=== PATIENT | female | born 1955 | race Caucasian/White ===

== ENCOUNTER 2017-07-26 06:53 | Inpatient (IN) | payer OTHER ==
[2017-07-26] VITALS (21 sets, daily range): BP systolic 100–140; BP diastolic 52–93; PULSE 82–104; RESP 11–27; Ht 160 cm; Wt 52.3 kg
[~2017-07-26] VITALS: Ht 160 cm; Wt 52.3 kg
[~2017-07-26 06:53] MED LIST: NO HOME MEDS
[2017-07-26] MEDS ORDERED: EPHEDrine SULFATE 50 MG/5 ML SYG ONE (07:00)
[2017-07-26] MEDS ORDERED: CEFAZOLIN 1 GM INJ ONE (07:00)
[2017-07-26] MEDS ORDERED: ROCURONIUM 50 MG INJ ONE (07:00)
--- NOTE | 2017-07-26 07:51 | HPN ---
Date/Time of Note Date/Time of Note DATE: 07/26/17 TIME: 07:51 Interval H&P Admission Note Pt. seen H&P reviewed: No system changes BAUDILIO PIMENTEL MD Jul 26, 2017 07:51
[2017-07-26] MEDS ORDERED: PROPOFOL 20 ML ONE (07:59)
[2017-07-26] MEDS ORDERED: morphine SULFATE/PF (10 MG/10 ML) INJ ONE (07:59)
[2017-07-26] MEDS ORDERED: TRANEXAMIC ACID IVPB ONE (08:00)
[2017-07-26] MEDS ORDERED: MIDAZOLAM 1 MG/ML 2 ML INJ ONE (08:00)
[2017-07-26] MEDS ORDERED: SOD CHLORIDE 0.9% IVPB ONE (08:00)
[2017-07-26] MEDS ORDERED: METOCLOPRAMIDE 10 MG INJ ONE (08:00)
[2017-07-26] MEDS ORDERED: CITA10TA72 PO (08:01)
[2017-07-26] MEDS ORDERED: NAPR-688 PO (08:01)
[2017-07-26] MEDS ORDERED: TRAM-40 PO (08:01)
[2017-07-26] MEDS ORDERED: RANI150T9 PO (08:01)
[2017-07-26] MEDS ORDERED: ROPIVACAINE 0.5 % 30 ML VIAL ONE (08:01)
[2017-07-26] MEDS ORDERED: DEXAMETHASONE 4 MG/ML 1 ML INJ ONE (08:55)
[2017-07-26] MEDS ORDERED: POLYMYXIN/BACITRACIN 1L IRRIG ONE (09:40)
[2017-07-26] MEDS ORDERED: ONDANSETRON 4 MG INJ IV PRN (10:00)
[2017-07-26] MEDS ORDERED: DIPHENHYDRAMINE 50 MG INJ IV PRN (10:00)
[2017-07-26] MEDS ORDERED: HYDROmorphONE (0.2 MG/ML) 10ML SYG IV PRN ×3 (10:00)
[2017-07-26] MEDS ORDERED: MEPERIDINE 25 MG INJ IV PRN (10:00)
--- NOTE | 2017-07-26 11:49 | OPR ---
Date/Time of Note Date/Time of Note DATE: 07/26/17 TIME: 11:37 Operative Report Preoperative Diagnosis Left hip osteoarthritis Postoperative Diagnosis Same Operation/Procedure Performed Left total hip replacement Surgeon see signature line At Risk Specialist None Anesthesia Type: general, other (Fascial iliaca block) Estimated Blood Loss: 100 - 150 ml's Transfusion none Specimen Femoral head Grafts/Implants Microport implants 1. Pro femur Z femoral stem size 3 with neutral neck 2. 50 mm acetabular cup 3. 36 mm head Tubes/Drains None Complications none Disposition: PACU Indications Ms. Stephen is a 62-year-old female who has had progressive pain in both hips. Pain has been worse on the left side. She has received nonoperative treatment with cortisone injection physical therapy and anti-inflammatory medications. Yet continued to have severe pain. She now presents for elective left total hip replacement. Risks and benefits of the surgery were discussed with the patient's. Risks including but not limited to infection bleeding blood clots dislocation fracture nerve damage blood vessel damage need for more surgery along with other medical anesthetic and surgical complications were discussed. Informed consent was obtained. Procedure Description Patient's correct extremity was identified in the preoperative area. She is brought back to the operating room where she had spinal anesthetic she had the block. She then had general endotracheal anesthesia. The she had preoperative antibiotics. She has Tranexamic acid administered. She had a Machado catheter placed. She was then positioned in the lateral decubitus position with the left side facing up. Left lower extremity is prepped and draped in the standard sterile manner. Timeout was performed. I then made a standard lateral incision for a posterior approach. I went through skin subcutaneous tissue incised the fascia bluntly split the gluteus karl muscle. The piriformis tendon was found and released and tagged. T-shaped capsulotomy was made in the capsule. The hip joint was then dislocated and a femoral neck cut was made. The femoral head was then passed the specimen I then turned my attention the acetabulum I put my retractors sequentially reamed to 49 reamer I then impacted a 50 mm cup to the was fully seated with about 40 of abduction and about 15 of anteversion. I put 2 screws x-ray showed confirmed good position of the cup. I then turned my attention the femur I cleared the calcar region and then sequentially broached to a size 3 broach I then trialed a neutral neck with a 36 head until I was able to get the leg lengths which are equal as confirmed by x-ray at this point I think the trial broach impacted a size 3 Pro femur Z stem until it was fully seated. At this point I used a 2.5 mm head impacted until the Madrigal taper engaged I then reduced the hip the hip was stable in mid flexion full flexion external rotation had excellent stability at this point I obtained final x-rays which confirm that leg lengths were equal when comparing the inferior aspect of the initial tuberosity. At this point I turned my attention closure thoroughly irrigated the wounds good hemostasis been obtained so drain was not utilized. I closed the piriformis tendon and the posterior hip capsule to the posterolateral aspect of the femur using 2 drill holes. The fascia was then closed with interrupted #1 Vicryl subcutaneous tissue with 2-0 Vicryl skin with luis alfredo. A dry sterile dressing was applied. Patient was then extubated and transported to the recovery room in stable condition. The foot was warm with a 2+ dorsalis pedis pulse at the end of the case. And the leg lengths were clinically equal and comparing the medial malleoli. BAUDILIO PIMENTEL MD Jul 26, 2017 11:49
[2017-07-26] MEDS ORDERED: MAGNESIUM HYDROXIDE 30ML CUP PO PRN (12:00)
[2017-07-26] MEDS ORDERED: oxyCODONE 5 MG TAB PO PRN (12:00)
[2017-07-26] MEDS ORDERED: NALOXONE (0.4 MG/ML) INJ IV PRN (12:00)
[2017-07-26] MEDS ORDERED: NACL 0.9% 3 ML SYG IV SCH (12:00)
[2017-07-26] MEDS ORDERED: SENNA/DOCUSATE NA (8.6MG/50MG) TAB PO PRN (12:00)
[2017-07-26] MEDS ORDERED: CEFAZOLIN 1 GM/50 ML (PMX) 50 ML IVPB ONE (12:08)
[2017-07-26] MEDS ORDERED: ACETAMINOPHEN 500 MG TAB ONE (12:09)
[2017-07-26] MEDS: ACETAMINOPHEN 500 MG TAB PO SCH ×2 (12:16→18:10)
[2017-07-26] MEDS: CEFAZOLIN 1 GM/50 ML (PMX) 50 ML IVPB SCH ×2 (12:17→19:40)
[2017-07-26] MEDS: DEXTROSE 5%-LR 1,000 ML IV SCH (12:57)
--- NOTE | 2017-07-26 13:01 | RADRPT ---
PROCEDURE: XR left Hip. CLINICAL INDICATION: Left hip pain, hip replacement TECHNIQUE: AP and cross-table lateral views of the left hip are submitted for review. COMPARISON: None. FINDINGS: Portions of a left total hip arthroplasty are present. These appear to be anatomically aligned and w ell seated. The right hip is unremarkable. The soft tissues are unremarkable. IMPRESSION: Portions of a left hip arthroplasty are present. These appear to be anatomically aligned and well se ated. RPTAT:AAJJ Physician Fabio Date Time Electronically viewed and signed by Andrés Hernandez Physician on 07/26/2017 13:00 SERGO/
--- NOTE | 2017-07-26 15:56 | HP ---
Date/Time of Note Date/Time of Note DATE: 07/26/17 TIME: 15:48 Assessment/Plan VTE Prophylaxis VTE Prophylaxis Intervention: other Lines/Catheters IV Catheter Type (from Nrsg): Peripheral IV Urinary Cath still in place: Yes Reason Cath still needed: urinary retention Assessment/Plan Assessment/Plan -Left hip osteoarthritis, status post left total hip replacement, will start Eliquis tomorrow 2.5 mg twice daily for 35 days. Continue oxycodone for pain. Follow up surgical recommendations -Depression with anxiety, continue Celexa. -Smoker, cessation is advised. Further recommendations based on clinical course. Plan of care discussed with Dr. Porras. HPI/ROS Admit Date/Time Admit Date/Time Jul 26, 2017 at 06:53 Hx of Present Illness The patient is 62-year-old pleasant female with history of depression with anxiety. Patient complains of bilateral hip pain left more than right which could progressively worse. Patient received nonoperative treatment with cortisone injection and physical talc therapy and anti-inflammatory medication with no significant improvement. Patient was evaluated by Dr. Stout in orthopedic surgery consultation. Patient was brought to the hospital and underwent total left hip replacement. Patient is admitted for further evaluation and management to medical surgical floor. PMH/Family/Social Past Medical History Depression with anxiety Past Surgical History Status post appendectomy status post skin cyst removal status post colonoscopy Family History Significant Family History: no pertinent family hx Social History Alcohol Use: none Smoking Status: Current every day smoker (Patient smokes about 4 cigarettes per day) Drug Use: none Exam/Review of Systems Vital Signs Vitals Vital Signs Date Time Temp Pulse Resp B/P Pulse Ox O2 Delivery O2 Flow Rate FiO2 07/26/17 14:30 97.7 91 16 112/56 100 Room Air 07/26/17 11:48 8.0 Exam Constitutional: alert, oriented Head: normocephalic Neck: supple Respiratory: normal air movement Cardiovascular: nl pulses Gastrointestinal: non-tender, soft Musculoskeletal: other (Status post left hip surgery) Extremities: normal pulses Neurological: nl mental status Medications Medications Current Medications Dextrose/Lactated Ringer's (D5-Lr) 1,000 ml @ 80 mls/hr [id number] IV Last administered on 07/26/17t 12:57; Admin Dose 80 MLS/HR; Start 11/17/17 at 11:50 Oxycodone HCl (Roxicodone) 20 mg Q3H PRN PO PAIN LEVEL 8-10; Start 07/26/17 at 12:00 Oxycodone HCl (Roxicodone) 10 mg Q3H PRN PO PAIN LEVEL 4-7; Start 07/26/17 at 12:00 Oxycodone HCl (Roxicodone) 5 mg Q3H PRN PO PAIN LEVEL 1-3; Start 07/26/17 at 12:00 Acetaminophen (Tylenol Tab) 500 mg Q6 PO Last administered on 07/26/17t 12:16 ; Admin Dose 500 MG; Start 07/26/17 at 12:00 Ondansetron HCl 4 mg 4 mg Q4H PRN IV NAUSEA AND/OR VOMITING; Start 07/27/17 at 12:00 Cefazolin Sodium (Ancef 1 Gm/50 ml (Pmx)) 50 ml @ 100 mls/hr Q8H IVPB Last administered on 07/26/17t 12:17; Admin Dose 100 MLS/HR; Start 07/26/17 at 12: 00; Stop 07/27/17 at 04:29 Pantoprazole (Protonix Tab) 40 mg DAILY@06 PO ; Start 07/27/17 at 06:00 Docusate Sodium (Colace) 200 mg BID PO ; Start 07/27/17 at 09:00; Stop at 21:01 Senna/Docusate Sodium (Senokot-S) 2 tab BID PRN PO CONSTIPATION; Start at 12:00 Magnesium Hydroxide (Milk Of Mag) 30 ml HS PRN PO CONSTIPATION; Start at 12:00 Naloxone HCl (Narcan) 0.2 mg Q2M PRN IV DECREASED REPIRATORY RATE; Start at 12:00 Apixaban (Eliquis) 2.5 mg BID PO ; Start 07/27/17 at 09:00 KERI MURRAY Jul 26, 2017 15:56
[2017-07-26] MEDS ORDERED: ONDANSETRON 4 MG INJ ONE (18:33)
[2017-07-26] MEDS: ONDANSETRON 4 MG INJ IV PRN (18:38)
[2017-07-27] VITALS (8 sets, daily range): BP systolic 75–117; BP diastolic 50–60; PULSE 82–96; RESP 16–19
[2017-07-27] MEDS: DEXTROSE 5%-LR 1,000 ML IV SCH (01:06)
[2017-07-27] MEDS: CEFAZOLIN 1 GM/50 ML (PMX) 50 ML IVPB SCH (04:25)
[2017-07-27 05:23] LABS: BASOPHILS % 0.1 % (0.0-2.0); EOSINOPHILS % 0.4 % (0.0-7.0); HEMATOCRIT 24.4 % (37.0-47.0); HEMOGLOBIN 8.2 g/dl (12.0-16.0); LYMPHOCYTES # 2.1 10^3/ul (0.8-2.9); LYMPHOCYTES % 22.2 % (15.0-51.0); MEAN CORPUSCULAR HEMOGLOBIN 30.7 pg (29.0-33.0); MEAN CORPUSCULAR HGB CONC 33.6 g/dl (32.0-37.0); MEAN CORPUSCULAR VOLUME 91.4 fl (82.0-101.0); MEAN PLATELET VOLUME 10.7 fl (7.4-10.4); MONOCYTES % 10.9 % (0.0-11.0); NEUTROPHIL # 6.2 10^3/ul (1.6-7.5); NEUTROPHILS % 66.1 % (39.0-77.0); PLATELET COUNT 182 10^3/UL (140-415); RED BLOOD COUNT 2.67 10^6/ul (4.20-5.40); RED CELL DISTRIBUTION WIDTH 12.5 % (11.5-14.5); WHITE BLOOD COUNT 9.4 10^3/ul (4.8-10.8)
[2017-07-27] MEDS: ACETAMINOPHEN 500 MG TAB PO SCH ×6 (05:55→18:26)
[2017-07-27] MEDS: oxyCODONE 5 MG TAB PO PRN ×3 (05:59→22:27)
[2017-07-27] MEDS: PANTOPRAZOLE (EC) 40 MG TAB PO SCH (05:59)
[2017-07-27 06:39] LABS: CALCIUM 8.6 mg/dl (8.4-10.2); CREATININE 0.67 mg/dl (0.44-1.00); POTASSIUM 4.2 mmol/L (3.5-5.1)
[2017-07-27] MEDS ORDERED: SOD CHLORIDE 0.9% 1,000 ML IV ONE (09:00)
[2017-07-27] MEDS: DOCUSATE SODIUM 100 MG CAP PO SCH ×2 (09:07→22:22)
[2017-07-27] MEDS: CITALOPRAM 20 MG TAB PO SCH (09:08)
[2017-07-27] MEDS: APIXABAN 5 MG TABLET PO SCH ×2 (09:08→22:22)
[2017-07-27] MEDS ORDERED: ONDANSETRON 4 MG INJ IV PRN (12:00)
[2017-07-27] MEDS: SOD CHLORIDE 0.9% 1,000 ML IV SCH ×2 (12:11→23:30)
--- NOTE | 2017-07-27 12:16 | PN ---
Date/Time of Note Date/Time of Note DATE: 07/27/17 TIME: 12:14 Assessment/Plan Lines/Catheters IV Catheter Type (from Nrsg): Peripheral IV Machado in Place (from Nrsg): Yes Assessment/Plan Assessment/Plan Postop day 1 status post left total hip replacement Goal is pain control today. She worked with physical therapy but became hypotensive. Presently her blood pressure is systolic 111. She is on Eliquis and SCDs for DVT prophylaxis We will discontinue the Machado catheter today Dressing change tomorrow Discharge planning can be started Subjective 24 Hr Interval Summary Patient is complaining of some pain. She ambulated with physical therapy earlier today. Exam/Review of Systems Vital Signs Vitals Vital Signs Date Time Temp Pulse Resp B/P Pulse Ox O2 Delivery O2 Flow Rate FiO2 07/27/17 11:36 96 101/54 Room Air 07/27/17 11:15 98 07/27/17 08:01 99.8 16 07/26/17 20:11 2.0 Intake and Output 07/26/17 07/26/17 07/27/17 15:00 23:00 07:00 Intake Total 2250 ml 1170 ml 1810 ml Output Total 400 ml 600 ml 1800 ml Balance 1850 ml 570 ml 10 ml Exam Free Text/Dictation Left hip dressing is clean dry and intact. Thigh and calf are soft. She has intact motor and sensory function in the left foot Foot is warm well perfused with a 2+ dorsalis pedis pulse. Results Result Diagram: 07/27/17 0445 07/27/17 0445 BAUDILIO PIMENTEL MD Jul 27, 2017 12:16
[2017-07-27] MEDS: ONDANSETRON 4 MG INJ IV PRN (14:19)
--- NOTE | 2017-07-27 14:33 | PN ---
Date/Time of Note Date/Time of Note DATE: 07/27/17 TIME: 14:27 Assessment/Plan VTE Prophylaxis VTE Prophylaxis Intervention: other Lines/Catheters IV Catheter Type (from Nrsg): Peripheral IV Urinary Cath still in place: Yes Reason Cath still needed: urinary retention Assessment/Plan Assessment/Plan -Left hip osteoarthritis - status post left total hip replacement - per ortho - Eliquis tomorrow 2.5 mg twice daily for 35 days. - Continue oxycodone for pain. -Depression with anxiety, continue Celexa. -Smoker, cessation is advised. Further recommendations based on clinical course. Plan of care discussed with Dr. Porras. Subjective 24 Hr Interval Summary Free Text/Dictation patient has orthostatic BP- Sp NS infusion. unable tolerate PT now. back in bed - BP stable.dw staff Respiratory: no complaints Cardiovascular: orthopenea, other (orthostatic hypotension) Gastrointestinal: no complaints Genitourinary: no complaints Musculoskeletal: no complaints Exam/Review of Systems Vital Signs Vitals Vital Signs Date Time Temp Pulse Resp B/P Pulse Ox O2 Delivery O2 Flow Rate FiO2 07/27/17 11:36 96 101/54 Room Air 07/27/17 11:15 98 07/27/17 08:01 99.8 16 07/26/17 20:11 2.0 Intake and Output 07/26/17 07/26/17 07/27/17 15:00 23:00 07:00 Intake Total 2250 ml 1170 ml 1810 ml Output Total 400 ml 600 ml 1800 ml Balance 1850 ml 570 ml 10 ml Exam Constitutional: alert Respiratory: diminished breath sounds, normal air movement Cardiovascular: nl pulses, other (s1s2) Gastrointestinal: soft Musculoskeletal: other (status post left total hip replacement- DDI) Extremities: normal pulses Neurological: other (alert/awake/ responsive) Results Result Diagram: 07/27/175 07/27/17 0445 Results 24 hrs Laboratory Tests Test 07/27/17 04:45 White Blood Count 9.4 Red Blood Count 2.67 L Hemoglobin 8.2 L Hematocrit 24.4 L Mean Corpuscular Volume 91.4 Mean Corpuscular Hemoglobin 30.7 Mean Corpuscular Hemoglobin Concent 33.6 Red Cell Distribution Width 12.5 Platelet Count 182 Mean Platelet Volume 10.7 H Neutrophils % 66.1 Lymphocytes % 22.2 Monocytes % 10.9 Eosinophils % 0.4 Basophils % 0.1 Nucleated Red Blood Cells % 0.0 Neutrophils # 6.2 Lymphocytes # 2.1 Monocytes # 1.0 H Eosinophils # 0.0 Basophils # 0.0 Nucleated Red Blood Cells # 0.0 Sodium Level 142 Potassium Level 4.2 Chloride Level 108 Carbon Dioxide Level 27 Anion Gap 11 Blood Urea Nitrogen 10 Creatinine 0.67 Glucose Level 99 Calcium Level 8.6 Medications Medications Current Medications Oxycodone HCl (Roxicodone) 20 mg Q3H PRN PO PAIN LEVEL 8-10; Start 07/26/17 at 12:00 Oxycodone HCl (Roxicodone) 10 mg Q3H PRN PO PAIN LEVEL 4-7 Last administered on 07/27/17 05:59; Admin Dose 10 MG; Start 07/26/17 at 12:00 Oxycodone HCl (Roxicodone) 5 mg Q3H PRN PO PAIN LEVEL 1-3 Last administered on 07/27/17 11:23; Admin Dose 5 MG; Start 07/26/17 at 12:00 Acetaminophen (Tylenol Tab) 500 mg Q6 PO Last administered on 07/27/17 12:10 ; Admin Dose 500 MG; Start 07/26/17 at 12:00 Pantoprazole (Protonix Tab) 40 mg DAILY@06 PO Last administered on 07/27/17 05:59; Admin Dose 40 MG; Start 07/27/17 at 06:00 Docusate Sodium (Colace) 200 mg BID PO Last administered on 07/27/17 09:07; Admin Dose 200 MG; Start 07/27/17 at 09:00; Stop 07/29/17 at 21:01 Senna/Docusate Sodium (Senokot-S) 2 tab BID PRN PO CONSTIPATION; Start at 12:00 Magnesium Hydroxide (Milk Of Mag) 30 ml HS PRN PO CONSTIPATION; Start at 12:00 Naloxone HCl (Narcan) 0.2 mg Q2M PRN IV DECREASED REPIRATORY RATE; Start at 12:00 Apixaban (Eliquis) 2.5 mg BID PO Last administered on 07/27/17 09:08; Admin Dose 2.5 MG; Start 07/27/17 at 09:00 Citalopram Hydrobromide (Celexa) 10 mg DAILY PO Last administered on 09:08; Admin Dose 10 MG; Start 07/27/17 at 09:00 Ondansetron HCl 4 mg 4 mg Q4H PRN IV NAUSEA AND/OR VOMITING Last administered on 07/27/17 14:19; Admin Dose 4 MG; Start 07/26/17 at 19:00 Sodium Chloride (NS) 1,000 ml @ 80 mls/hr [id number] IV Last administered on 12:11; Admin Dose 80 MLS/HR; Start 07/27/17 at 11:00 DESEAN YEUNG Jul 27, 2017 14:33
[2017-07-27 16:17] LABS: BASOPHILS % 0.1 % (0.0-2.0); EOSINOPHILS % 0.2 % (0.0-7.0); HEMATOCRIT 24.6 % (37.0-47.0); HEMOGLOBIN 8.2 g/dl (12.0-16.0); LYMPHOCYTES # 1.5 10^3/ul (0.8-2.9); LYMPHOCYTES % 12.6 % (15.0-51.0); MEAN CORPUSCULAR HEMOGLOBIN 30.9 pg (29.0-33.0); MEAN CORPUSCULAR HGB CONC 33.3 g/dl (32.0-37.0); MEAN CORPUSCULAR VOLUME 92.8 fl (82.0-101.0); MEAN PLATELET VOLUME 10.6 fl (7.4-10.4); MONOCYTE # 1.3 10^3/ul (0.3-0.9); MONOCYTES % 10.4 % (0.0-11.0); NEUTROPHIL # 9.3 10^3/ul (1.6-7.5); NEUTROPHILS % 76.2 % (39.0-77.0); PLATELET COUNT 166 10^3/UL (140-415); RED BLOOD COUNT 2.65 10^6/ul (4.20-5.40); RED CELL DISTRIBUTION WIDTH 12.7 % (11.5-14.5); WHITE BLOOD COUNT 12.2 10^3/ul (4.8-10.8)
--- NOTE | 2017-07-27 20:36 | RADRPT ---
PROCEDURE: XR hip CLINICAL INDICATION: Left hip replacement TECHNIQUE: AP and frog lateral portable views of the left hip COMPARISON: Left hip radiograph series 07/26/2017 FINDINGS: Postoperative changes are present. Left hip arthroplasty. Hardware is intact. Decrease in left hip/t high soft tissue gas. No other significant interval changes seen. IMPRESSION: 1. Left hip arthroplasty and postoperative changes. RPTAT: TT Physician Enoch Date Time Electronically viewed and signed by Merry Abbott Physician on 07/27/2017 20:36 JS/
--- NOTE | 2017-07-27 22:30 | PN ---
Date/Time of Note Date/Time of Note DATE: 07/27/17 TIME: 22:26 Assessment/Plan VTE Prophylaxis VTE Prophylaxis Intervention: other Lines/Catheters IV Catheter Type (from Nrsg): Peripheral IV Urinary Cath still in place: Yes Subjective 24 Hr Interval Summary Free Text/Dictation anesthesia note aA 62 year female s/p hip arthroplasty spinal duramorph is doing fine, pain is controlled, no n/ v, itching, headache, back pain or any neural deficit. back is clean. care per surgery team Exam/Review of Systems Vital Signs Vitals Vital Signs Date Time Temp Pulse Resp B/P Pulse Ox O2 Delivery O2 Flow Rate FiO2 07/27/17 19:30 99.5 99 18 103/53 94 07/27/17 11:36 Room Air 07/26/17 20:11 2.0 Intake and Output 07/26/17 07/26/17 07/27/17 14:59 22:59 06:59 Intake Total 2250 ml 1170 ml 1810 ml Output Total 400 ml 600 ml 1800 ml Balance 1850 ml 570 ml 10 ml Results Result Diagram: 07/27/17 1601 07/27/17 0445 Results 24 hrs Laboratory Tests Test 07/27/17 04:45 07/27/17 16:01 White Blood Count 9.4 12.2 #H Red Blood Count 2.67 L 2.65 L Hemoglobin 8.2 L 8.2 L Hematocrit 24.4 L 24.6 L Mean Corpuscular Volume 91.4 92.8 Mean Corpuscular Hemoglobin 30.7 30.9 Mean Corpuscular Hemoglobin Concent 33.6 33.3 Red Cell Distribution Width 12.5 12.7 Platelet Count 182 166 Mean Platelet Volume 10.7 H 10.6 H Neutrophils % 66.1 76.2 Lymphocytes % 22.2 12.6 L Monocytes % 10.9 10.4 Eosinophils % 0.4 0.2 Basophils % 0.1 0.1 Nucleated Red Blood Cells % 0.0 0.0 Neutrophils # 6.2 9.3 H Lymphocytes # 2.1 1.5 Monocytes # 1.0 H 1.3 H Eosinophils # 0.0 0.0 Basophils # 0.0 0.0 Nucleated Red Blood Cells # 0.0 0.0 Sodium Level 142 Potassium Level 4.2 Chloride Level 108 Carbon Dioxide Level 27 Anion Gap 11 Blood Urea Nitrogen 10 Creatinine 0.67 Glucose Level 99 Calcium Level 8.6 Medications Medications Current Medications Oxycodone HCl (Roxicodone) 20 mg Q3H PRN PO PAIN LEVEL 8-10; Start 07/26/17 at 12:00 Oxycodone HCl (Roxicodone) 10 mg Q3H PRN PO PAIN LEVEL 4-7 Last administered on 07/27/17 17:12; Admin Dose 10 MG; Start 07/26/17 at 12:00 Oxycodone HCl (Roxicodone) 5 mg Q3H PRN PO PAIN LEVEL 1-3 Last administered on 07/27/17 11:23; Admin Dose 5 MG; Start 07/26/17 at 12:00 Acetaminophen (Tylenol Tab) 500 mg Q6 PO Last administered on 07/27/17 18:26 ; Admin Dose 500 MG; Start 07/26/17 at 12:00 Pantoprazole (Protonix Tab) 40 mg DAILY@06 PO Last administered on 07/27/17 05:59; Admin Dose 40 MG; Start 07/27/17 at 06:00 Docusate Sodium (Colace) 200 mg BID PO Last administered on 07/27/17 22:22; Admin Dose 200 MG; Start 07/27/17 at 09:00; Stop 07/29/17 at 21:01 Senna/Docusate Sodium (Senokot-S) 2 tab BID PRN PO CONSTIPATION; Start at 12:00 Magnesium Hydroxide (Milk Of Mag) 30 ml HS PRN PO CONSTIPATION; Start at 12:00 Naloxone HCl (Narcan) 0.2 mg Q2M PRN IV DECREASED REPIRATORY RATE; Start at 12:00 Apixaban (Eliquis) 2.5 mg BID PO Last administered on 07/27/17 22:22; Admin Dose 2.5 MG; Start 07/27/17 at 09:00 Citalopram Hydrobromide (Celexa) 10 mg DAILY PO Last administered on 09:08; Admin Dose 10 MG; Start 07/27/17 at 09:00 Ondansetron HCl 4 mg 4 mg Q4H PRN IV NAUSEA AND/OR VOMITING Last administered on 07/27/17 14:19; Admin Dose 4 MG; Start 07/26/17 at 19:00 Sodium Chloride (NS) 1,000 ml @ 80 mls/hr [id number] IV Last administered on t 12:11; Admin Dose 80 MLS/HR; Start 07/27/17 at 11:00 CITLALI JOSE MD Jul 27, 2017 22:30
[2017-07-28 02:31] VITALS: BP 139/65; RESP 18
[2017-07-28 05:13] LABS: BASOPHILS % 0.2 % (0.0-2.0); HEMATOCRIT 25.9 % (37.0-47.0); HEMOGLOBIN 8.6 g/dl (12.0-16.0); LYMPHOCYTES % 6.4 % (15.0-51.0); MEAN CORPUSCULAR HEMOGLOBIN 30.8 pg (29.0-33.0); MEAN CORPUSCULAR HGB CONC 33.2 g/dl (32.0-37.0); MEAN CORPUSCULAR VOLUME 92.8 fl (82.0-101.0); MEAN PLATELET VOLUME 10.9 fl (7.4-10.4); MONOCYTE # 1.2 10^3/ul (0.3-0.9); MONOCYTES % 7.5 % (0.0-11.0); NEUTROPHILS % 85.4 % (39.0-77.0); PLATELET COUNT 187 10^3/UL (140-415); RED BLOOD COUNT 2.79 10^6/ul (4.20-5.40); RED CELL DISTRIBUTION WIDTH 12.7 % (11.5-14.5); WHITE BLOOD COUNT 16.3 10^3/ul (4.8-10.8)
[2017-07-28 05:57] LABS: CALCIUM 8.9 mg/dl (8.4-10.2); CREATININE 0.69 mg/dl (0.44-1.00); POTASSIUM 3.8 mmol/L (3.5-5.1)
[2017-07-28] MEDS: PANTOPRAZOLE (EC) 40 MG TAB PO SCH (06:07)
[2017-07-28] MEDS: ACETAMINOPHEN 500 MG TAB PO SCH ×4 (06:07→17:21)
[2017-07-28 06:46] VITALS: BP 145/66; PULSE 85; RESP 16
[2017-07-28 07:56] VITALS: BP 145/67; RESP 18
[2017-07-28] MEDS: DOCUSATE SODIUM 100 MG CAP PO SCH ×2 (10:19→20:39)
[2017-07-28] MEDS: oxyCODONE 5 MG TAB PO PRN ×3 (10:20→20:39)
[2017-07-28] MEDS: APIXABAN 5 MG TABLET PO SCH ×2 (10:20→20:39)
[2017-07-28] MEDS: CITALOPRAM 20 MG TAB PO SCH (10:20)
[2017-07-28] MEDS: SOD CHLORIDE 0.9% 1,000 ML IV SCH (12:00)
[2017-07-28 15:33] VITALS: BP 102/53; RESP 16
--- NOTE | 2017-07-28 15:48 | PN ---
Date/Time of Note Date/Time of Note DATE: 07/28/17 TIME: 15:47 Assessment/Plan Lines/Catheters IV Catheter Type (from Nrs): Saline Lock Urinary Cath still in place: No Assessment/Plan Assessment/Plan - Leukocytosis- afebrile - - will get UA. u- c/s- fu -Left hip osteoarthritis - status post left total hip replacement - per ortho - Eliquis tomorrow 2.5 mg twice daily for 35 days. - Continue oxycodone for pain. -Depression with anxiety, continue Celexa. -Smoker, cessation is advised. Further recommendations based on clinical course. Plan of care discussed with Dr. Porras. Exam/Review of Systems Vital Signs Vitals Vital Signs Date Time Temp Pulse Resp B/P Pulse Ox O2 Delivery O2 Flow Rate FiO2 07/28/17 15:33 99.2 93 16 102/53 95 07/28/17 06:46 Room Air 07/26/17 20:11 2.0 Intake and Output 07/27/17 07/27/17 07/28/17 15:00 23:00 07:00 Intake Total 1240 ml 1400 ml 1250 ml Output Total 2000 ml 700 ml Balance 1240 ml -600 ml 550 ml Results Result Diagram: 07/28/17 0442 07/28/17 0442 Results 24 hrs Laboratory Tests Test 07/27/17 16:01 07/28/17 04:42 White Blood Count 12.2 #H 16.3 #H Red Blood Count 2.65 L 2.79 L Hemoglobin 8.2 L 8.6 L Hematocrit 24.6 L 25.9 L Mean Corpuscular Volume 92.8 92.8 Mean Corpuscular Hemoglobin 30.9 30.8 Mean Corpuscular Hemoglobin Concent 33.3 33.2 Red Cell Distribution Width 12.7 12.7 Platelet Count 166 187 Mean Platelet Volume 10.6 H 10.9 H Neutrophils % 76.2 85.4 H Lymphocytes % 12.6 L 6.4 L Monocytes % 10.4 7.5 Eosinophils % 0.2 0.0 Basophils % 0.1 0.2 Nucleated Red Blood Cells % 0.0 0.0 Neutrophils # 9.3 H 14.0 H Lymphocytes # 1.5 1.0 Monocytes # 1.3 H 1.2 H Eosinophils # 0.0 0.0 Basophils # 0.0 0.0 Nucleated Red Blood Cells # 0.0 0.0 Sodium Level 142 Potassium Level 3.8 Chloride Level 108 Carbon Dioxide Level 27 Anion Gap 11 Blood Urea Nitrogen 8 Creatinine 0.69 Glucose Level 131 Calcium Level 8.9 Medications Medications Current Medications Oxycodone HCl (Roxicodone) 20 mg Q3H PRN PO PAIN LEVEL 8-10; Start 07/26/17 at 12:00 Oxycodone HCl (Roxicodone) 10 mg Q3H PRN PO PAIN LEVEL 4-7 Last administered on 07/28/17 10:20; Admin Dose 10 MG; Start 07/26/17 at 12:00 Oxycodone HCl (Roxicodone) 5 mg Q3H PRN PO PAIN LEVEL 1-3 Last administered on 07/27/17 11:23; Admin Dose 5 MG; Start 07/26/17 at 12:00 Acetaminophen (Tylenol Tab) 500 mg Q6 PO Last administered on 07/28/17 13:31 ; Admin Dose 500 MG; Start 07/26/17 at 12:00 Pantoprazole (Protonix Tab) 40 mg DAILY@06 PO Last administered on 07/28/17 06:07; Admin Dose 40 MG; Start 07/27/17 at 06:00 Docusate Sodium (Colace) 200 mg BID PO Last administered on 07/28/17 10:19; Admin Dose 200 MG; Start 07/27/17 at 09:00; Stop 07/29/17 at 21:01 Senna/Docusate Sodium (Senokot-S) 2 tab BID PRN PO CONSTIPATION; Start at 12:00 Magnesium Hydroxide (Milk Of Mag) 30 ml HS PRN PO CONSTIPATION; Start at 12:00 Naloxone HCl (Narcan) 0.2 mg Q2M PRN IV DECREASED REPIRATORY RATE; Start at 12:00 Apixaban (Eliquis) 2.5 mg BID PO Last administered on 07/28/17 10:20; Admin Dose 2.5 MG; Start 07/27/17 at 09:00 Citalopram Hydrobromide (Celexa) 10 mg DAILY PO Last administered on 10:20; Admin Dose 10 MG; Start 07/27/17 at 09:00 Ondansetron HCl 4 mg 4 mg Q4H PRN IV NAUSEA AND/OR VOMITING Last administered on 07/27/17 14:19; Admin Dose 4 MG; Start 07/26/17 at 19:00 Sodium Chloride (NS) 1,000 ml @ 80 mls/hr [id number] IV Last administered on 12:11; Admin Dose 80 MLS/HR; Start 07/27/17 at 11:00 DESEAN YEUNG Jul 28, 2017 15:48
[2017-07-28 20:15] VITALS: BP 110/55; RESP 18
[2017-07-29] MEDS: oxyCODONE 5 MG TAB PO PRN ×4 (00:09→20:09)
[2017-07-29] MEDS: ACETAMINOPHEN 500 MG TAB PO SCH ×5 (00:09→23:02)
[2017-07-29 01:03] LABS: ADD UMIC YES; UR ASCORBIC ACID NEGATIVE (NEGATIVE); UR BACTERIA MANY /HPF (NONE SEEN); UR BILIRUBIN (Dip) NEGATIVE (NEGATIVE); UR BLOOD (Dip) 2+ mg/dL (NEGATIVE); UR CLARITY CLEAR (CLEAR); UR COLOR YELLOW (YELLOW); UR GLUCOSE (Dip) NEGATIVE (NEGATIVE); UR KETONES (Dip) NEGATIVE (NEGATIVE); UR LEUKOCYTE ESTERASE (Dip) NEGATIVE Leu/ul (NEGATIVE); UR NITRITE (Dip) NEGATIVE (NEGATIVE); UR RBC 1 /HPF (0-5); UR SPECIFIC GRAVITY (Dip) 1.012 (1.003-1.030); UR TOTAL PROTEIN (Dip) NEGATIVE (NEGATIVE); UR UROBILINOGEN (Dip) NEGATIVE (NEGATIVE)
[2017-07-29 02:16] VITALS: BP 108/57; RESP 18
[2017-07-29] MEDS: PANTOPRAZOLE (EC) 40 MG TAB PO SCH (05:28)
[2017-07-29] MEDS: SOD CHLORIDE 0.9% 1,000 ML IV SCH (05:45)
[2017-07-29 08:31] LABS: BASOPHILS % 0.2 % (0.0-2.0); EOSINOPHILS # 0.2 10^3/ul (0.0-0.5); HEMATOCRIT 23.9 % (37.0-47.0); HEMOGLOBIN 7.9 g/dl (12.0-16.0); LYMPHOCYTES # 2.4 10^3/ul (0.8-2.9); MEAN CORPUSCULAR HEMOGLOBIN 30.9 pg (29.0-33.0); MEAN CORPUSCULAR HGB CONC 33.1 g/dl (32.0-37.0); MEAN CORPUSCULAR VOLUME 93.4 fl (82.0-101.0); MEAN PLATELET VOLUME 11.1 fl (7.4-10.4); MONOCYTE # 1.3 10^3/ul (0.3-0.9); MONOCYTES % 8.5 % (0.0-11.0); NEUTROPHIL # 10.9 10^3/ul (1.6-7.5); NEUTROPHILS % 73.7 % (39.0-77.0); PLATELET COUNT 190 10^3/UL (140-415); RED BLOOD COUNT 2.56 10^6/ul (4.20-5.40); RED CELL DISTRIBUTION WIDTH 12.4 % (11.5-14.5); WHITE BLOOD COUNT 14.8 10^3/ul (4.8-10.8)
[2017-07-29 08:38] VITALS: BP 115/58; PULSE 84; RESP 14
[2017-07-29 09:10] LABS: CALCIUM 8.5 mg/dl (8.4-10.2); CREATININE 0.67 mg/dl (0.44-1.00); POTASSIUM 4.2 mmol/L (3.5-5.1)
--- NOTE | 2017-07-29 09:12 | PN ---
Date/Time of Note Date/Time of Note DATE: 07/29/17 TIME: 09:10 Assessment/Plan Lines/Catheters IV Catheter Type (from Nrsg): Saline Lock Machado in Place (from Nrsg): No Assessment/Plan Assessment/Plan Postop day 3 The patient has an elevated white count it appears based on the UTI she may have a urinary tract infection the culture is pending. I will discuss his with Her hematocrit is low but has been stable over the last 3 days Consider starting iron supplements Recommend continued gait training with physical therapy DVT prophylaxis Continue with discharge planning and we will set up DME's for her house She can be discharged when she has been medically stabilized Subjective 24 Hr Interval Summary Pain is improved she has been ambulating with physical therapy Exam/Review of Systems Vital Signs Vitals Vital Signs Date Time Temp Pulse Resp B/P Pulse Ox O2 Delivery O2 Flow Rate FiO2 07/29/17 08:38 98.5 84 14 115/58 97 07/28/17 06:46 Room Air 07/26/17 20:11 2.0 Intake and Output 07/28/17 07/28/17 07/29/17 15:00 23:00 07:00 Intake Total 1440 ml 640 ml Output Total 100 ml Balance 1340 ml 640 ml Exam Free Text/Dictation Evaluation of the left lower extremity reveals there is some mild swelling in the left thigh the dressing is clean dry and intact there is no surrounding erythema the foot is warm and well perfused with intact motor and sensory function Results Result Diagram: 07/29/17 0656 07/28/17 0442 BAUDILIO PIMENTEL MD Jul 29, 2017 09:12
[2017-07-29] MEDS: DOCUSATE SODIUM 100 MG CAP PO SCH ×2 (09:14→20:08)
[2017-07-29] MEDS: APIXABAN 5 MG TABLET PO SCH ×2 (09:14→20:08)
[2017-07-29] MEDS: CITALOPRAM 20 MG TAB PO SCH (09:15)
[2017-07-29 16:26] VITALS: BP 104/55; PULSE 92; RESP 18
--- NOTE | 2017-07-29 16:41 | PN ---
Date/Time of Note Date/Time of Note DATE: 07/29/17 TIME: 16:39 Assessment/Plan VTE Prophylaxis VTE Prophylaxis Intervention: other Lines/Catheters IV Catheter Type (from [facility]): Saline Lock Urinary Cath still in place: No Assessment/Plan Assessment/Plan - Leukocytosis- afebrile, trnded down today - UTI per UA but u- c/s- pending. -Left hip osteoarthritis - status post left total hip replacement - per ortho - Eliquis - Continue oxycodone for pain. -Depression with anxiety, continue Celexa. -Smoker, cessation is advised. Further recommendations based on clinical course. Plan of care discussed with Dr. Porras. Subjective 24 Hr Interval Summary Respiratory: no complaints Cardiovascular: no complaints Gastrointestinal: no complaints Genitourinary: no complaints Musculoskeletal: no complaints Exam/Review of Systems Vital Signs Vitals Vital Signs Date Time Temp Pulse Resp B/P Pulse Ox O2 Delivery O2 Flow Rate FiO2 07/29/17 16:26 98.4 92 18 104/55 95 Room Air 07/26/17 20:11 2.0 Intake and Output 07/28/17 07/28/17 07/29/17 15:00 23:00 07:00 Intake Total 1440 ml 640 ml Output Total 100 ml Balance 1340 ml 640 ml Exam Constitutional: alert, well developed Neck: non-tender Respiratory: clear to auscultation, normal air movement Cardiovascular: regular rate and rhythm Gastrointestinal: non-tender, soft Musculoskeletal: nl extremities to inspection Extremities: normal pulses Neurological: other Results Result Diagram: 07/29/17 0656 07/29/17 0656 Results 24 hrs Laboratory Tests Test 07/28/17 21:25 07/29/17 06:56 Urine Color YELLOW Urine Clarity CLEAR Urine pH 5.0 Urine Specific [place] 1.012 Urine Ketones NEGATIVE Urine Nitrite NEGATIVE Urine Bilirubin NEGATIVE Urine Urobilinogen NEGATIVE Urine Leukocyte Esterase NEGATIVE Urine Microscopic RBC 1 Urine Microscopic WBC 4 Urine Bacteria MANY A Urine Hemoglobin 2+ H Urine Glucose NEGATIVE Urine Total Protein NEGATIVE White Blood Count 14.8 H Red Blood Count 2.56 L Hemoglobin 7.9 L Hematocrit 23.9 L Mean Corpuscular Volume 93.4 Mean Corpuscular Hemoglobin 30.9 Mean Corpuscular Hemoglobin Concent 33.1 Red Cell Distribution Width 12.4 Platelet Count 190 Mean Platelet Volume 11.1 H Neutrophils % 73.7 Lymphocytes % 16.0 Monocytes % 8.5 Eosinophils % 1.0 Basophils % 0.2 Nucleated Red Blood Cells % 0.0 Neutrophils # 10.9 H Lymphocytes # 2.4 Monocytes # 1.3 H Eosinophils # 0.2 Basophils # 0.0 Nucleated Red Blood Cells # 0.0 Sodium Level 138 Potassium Level 4.2 Chloride Level 106 Carbon Dioxide Level 27 Anion Gap 9 Blood Urea Nitrogen 12 Creatinine 0.67 Glucose Level 88 # Calcium Level 8.5 Medications Medications Current Medications Oxycodone HCl (Roxicodone) 20 mg Q3H PRN PO PAIN LEVEL 8-10 Last administered on 07/29/17 15:10; Admin Dose 20 MG; Start 07/26/17 at 12:00 Oxycodone HCl (Roxicodone) 10 mg Q3H PRN PO PAIN LEVEL 4-7 Last administered on 07/29/17 09:16; Admin Dose 10 MG; Start 07/26/17 at 12:00 Oxycodone HCl (Roxicodone) 5 mg Q3H PRN PO PAIN LEVEL 1-3 Last administered on 07/27/17 11:23; Admin Dose 5 MG; Start 07/26/17 at 12:00 Acetaminophen (Tylenol Tab) 500 mg Q6 PO Last administered on 07/29/17 12:06 ; Admin Dose 500 MG; Start 07/26/17 at 12:00 Pantoprazole (Protonix Tab) 40 mg DAILY@06 PO Last administered on 07/29/17 05:28; Admin Dose 40 MG; Start 07/27/17 at 06:00 Docusate Sodium (Colace) 200 mg BID PO Last administered on 07/29/17 09:14; Admin Dose 200 MG; Start 07/27/17 at 09:00; Stop 07/29/17 at 21:01 Senna/Docusate Sodium (Senokot-S) 2 tab BID PRN PO CONSTIPATION Last administered on 07/29/17 12:06; Admin Dose 2 TAB; Start 07/26/17 at 12:00 Magnesium Hydroxide (Milk Of Mag) 30 ml HS PRN PO CONSTIPATION; Start at 12:00 Naloxone HCl (Narcan) 0.2 mg Q2M PRN IV DECREASED REPIRATORY RATE; Start at 12:00 Apixaban (Eliquis) 2.5 mg BID PO Last administered on 07/29/17 09:14; Admin Dose 2.5 MG; Start 07/27/17 at 09:00 Citalopram Hydrobromide (Celexa) 10 mg DAILY PO Last administered on 09:15; Admin Dose 10 MG; Start 07/27/17 at 09:00 Ondansetron HCl 4 mg 4 mg Q4H PRN IV NAUSEA AND/OR VOMITING Last administered on 07/27/17 14:19; Admin Dose 4 MG; Start 07/26/17 at 19:00 Sodium Chloride (NS) 1,000 ml @ 50 mls/hr Q20H IV Last administered on 12:11; Admin Dose 80 MLS/HR; Start 07/27/17 at 11:00 DESEAN YEUNG Jul 29, 2017 16:41
[2017-07-29 16:46] VITALS: BP 104/55; RESP 18
[2017-07-29] MEDS: FERROUS SULFATE (EC) 325 MG TAB PO SCH (18:03)
[2017-07-29] MEDS: BISACODYL (EC) 5 MG TAB PO PRN (20:08)
[2017-07-29 20:10] VITALS: BP 97/48; RESP 20
[2017-07-30 00:50] VITALS: BP 120/56; PULSE 95; RESP 19
[2017-07-30] MEDS: SOD CHLORIDE 0.9% 1,000 ML IV SCH (01:45)
[2017-07-30 03:45] VITALS: BP 117/57; PULSE 86; RESP 17
[2017-07-30] MEDS: oxyCODONE 5 MG TAB PO PRN ×4 (04:00→17:53)
[2017-07-30] MEDS: PANTOPRAZOLE (EC) 40 MG TAB PO SCH (05:26)
[2017-07-30] MEDS: ACETAMINOPHEN 500 MG TAB PO SCH ×3 (05:26→17:08)
[2017-07-30 05:27] LABS: BASOPHILS % 0.3 % (0.0-2.0); EOSINOPHILS # 0.4 10^3/ul (0.0-0.5); EOSINOPHILS % 3.7 % (0.0-7.0); HEMATOCRIT 22.6 % (37.0-47.0); HEMOGLOBIN 7.6 g/dl (12.0-16.0); LYMPHOCYTES # 1.7 10^3/ul (0.8-2.9); LYMPHOCYTES % 15.3 % (15.0-51.0); MEAN CORPUSCULAR HGB CONC 33.6 g/dl (32.0-37.0); MEAN CORPUSCULAR VOLUME 92.2 fl (82.0-101.0); MEAN PLATELET VOLUME 10.5 fl (7.4-10.4); MONOCYTES % 8.4 % (0.0-11.0); NEUTROPHIL # 8.1 10^3/ul (1.6-7.5); NEUTROPHILS % 71.7 % (39.0-77.0); PLATELET COUNT 246 10^3/UL (140-415); RED BLOOD COUNT 2.45 10^6/ul (4.20-5.40); RED CELL DISTRIBUTION WIDTH 12.4 % (11.5-14.5); WHITE BLOOD COUNT 11.3 10^3/ul (4.8-10.8)
[2017-07-30 05:42] LABS: CALCIUM 8.5 mg/dl (8.4-10.2); CREATININE 0.73 mg/dl (0.44-1.00); POTASSIUM 4.4 mmol/L (3.5-5.1)
[2017-07-30] MEDS: BISACODYL (EC) 5 MG TAB PO PRN (06:41)
[2017-07-30 08:13] VITALS: BP 118/63; RESP 18
[2017-07-30] MEDS: ONDANSETRON 4 MG INJ IV PRN (08:29)
[2017-07-30] MEDS: CITALOPRAM 20 MG TAB PO SCH (08:30)
[2017-07-30] MEDS: APIXABAN 5 MG TABLET PO SCH ×2 (08:30→20:42)
[2017-07-30] MEDS: FERROUS SULFATE (EC) 325 MG TAB PO SCH (08:30)
--- NOTE | 2017-07-30 13:48 | PN ---
Date/Time of Note Date/Time of Note DATE: 07/30/17 TIME: 13:43 Assessment/Plan VTE Prophylaxis VTE Prophylaxis Intervention: other Lines/Catheters IV Catheter Type (from Nrs): Saline Lock Urinary Cath still in place: No Assessment/Plan Chief Complaint/Hosp Course Assessment/Plan -Left hip osteoarthritis, status post left total hip replacement, continue Eliquis 2.5 mg twice daily for 35 days. Continue oxycodone for pain. Follow up surgical recommendations -Depression with anxiety, continue Celexa. -Smoker, cessation is advised. Further recommendations based on clinical course. Plan of care discussed with Dr. Porras. Problems: Exam/Review of Systems Vital Signs Vitals Vital Signs Date Time Temp Pulse Resp B/P Pulse Ox O2 Delivery O2 Flow Rate FiO2 07/30/17 08:13 94.6 89 18 118/63 99 07/30/17 03:45 Room Air 07/26/17 20:11 2.0 Intake and Output 07/29/17 07/29/17 07/30/17 15:00 23:00 07:00 Intake Total 700 ml 750 ml Balance 700 ml 750 ml Results Result Diagram: 07/30/17 0431 07/30/17 0446 Results 24 hrs Laboratory Tests Test 07/30/17 04:31 07/30/17 04:46 White Blood Count 11.3 #H Red Blood Count 2.45 L Hemoglobin 7.6 L Hematocrit 22.6 L Mean Corpuscular Volume 92.2 Mean Corpuscular Hemoglobin 31.0 Mean Corpuscular Hemoglobin Concent 33.6 Red Cell Distribution Width 12.4 Platelet Count 246 # Mean Platelet Volume 10.5 H Neutrophils % 71.7 Lymphocytes % 15.3 Monocytes % 8.4 Eosinophils % 3.7 Basophils % 0.3 Nucleated Red Blood Cells % 0.0 Neutrophils # 8.1 H Lymphocytes # 1.7 Monocytes # 1.0 H Eosinophils # 0.4 Basophils # 0.0 Nucleated Red Blood Cells # 0.0 Sodium Level 138 Potassium Level 4.4 Chloride Level 102 Carbon Dioxide Level 31 Anion Gap 9 Blood Urea Nitrogen 10 Creatinine 0.73 Glucose Level 105 Calcium Level 8.5 Medications Medications Current Medications Oxycodone HCl (Roxicodone) 20 mg Q3H PRN PO PAIN LEVEL 8-10 Last administered on 07/30/17t 09:05; Admin Dose 20 MG; Start 07/26/17 at 12:00 Oxycodone HCl (Roxicodone) 10 mg Q3H PRN PO PAIN LEVEL 4-7 Last administered on 07/29/17 09:16; Admin Dose 10 MG; Start 07/26/17 at 12:00 Oxycodone HCl (Roxicodone) 5 mg Q3H PRN PO PAIN LEVEL 1-3 Last administered on 07/27/17 11:23; Admin Dose 5 MG; Start 07/26/17 at 12:00 Acetaminophen (Tylenol Tab) 500 mg Q6 PO Last administered on 07/30/17 11:35 ; Admin Dose 500 MG; Start 07/26/17 at 12:00 Pantoprazole (Protonix Tab) 40 mg DAILY@06 PO Last administered on 07/30/17 05:26; Admin Dose 40 MG; Start 07/27/17 at 06:00 Senna/Docusate Sodium (Senokot-S) 2 tab BID PRN PO CONSTIPATION Last administered on 07/29/17 12:06; Admin Dose 2 TAB; Start 07/26/17 at 12:00 Magnesium Hydroxide (Milk Of Mag) 30 ml HS PRN PO CONSTIPATION Last administered on 07/29/17 17:16; Admin Dose 30 ML; Start 07/26/17 at 12:00 Naloxone HCl (Narcan) 0.2 mg Q2M PRN IV DECREASED REPIRATORY RATE; Start at 12:00 Apixaban (Eliquis) 2.5 mg BID PO Last administered on 07/30/17 08:30; Admin Dose 2.5 MG; Start 07/27/17 at 09:00 Citalopram Hydrobromide (Celexa) 10 mg DAILY PO Last administered on 08:30; Admin Dose 10 MG; Start 07/27/17 at 09:00 Ondansetron HCl 4 mg 4 mg Q4H PRN IV NAUSEA AND/OR VOMITING Last administered on 07/30/17 08:29; Admin Dose 4 MG; Start 07/26/17 at 19:00 Sodium Chloride (NS) 1,000 ml @ 50 mls/hr Q20H IV Last administered on 12:11; Admin Dose 80 MLS/HR; Start 07/27/17 at 11:00 Ferrous Sulfate (Ferrous Sulfate (Ec)) 325 mg DAILY PO Last administered on 08:30; Admin Dose 325 MG; Start 07/29/17 at 17:30 Bisacodyl (Dulcolax) 10 mg DAILY PRN PO CONSTIPATION Last administered on 07/30 06:41; Admin Dose 10 MG; Start 07/29/17 at 17:30 KERI MURRAY Jul 30, 2017 13:48
--- NOTE | 2017-07-30 13:55 | PN ---
Date/Time of Note Date/Time of Note DATE: 07/30/17 TIME: 13:51 Assessment/Plan VTE Prophylaxis VTE Prophylaxis Intervention: SCD's Lines/Catheters IV [facility] Type (from [email or web address] Saline Lock Urinary Cath still in place: No Assessment/Plan Chief Complaint/Hosp Course Assessment/Plan -Left hip osteoarthritis, status post left total hip replacement, continue Eliquis 2.5 mg twice daily for 35 days. Continue oxycodone for pain. Follow up surgical recommendations. -Anemia of acute blood loss, today's hemoglobin 7.6, transfuse 2 units of packed red blood cells. -Depression with anxiety, continue Celexa. -Smoker, cessation is advised. Further recommendations based on clinical course. Plan of care discussed with Dr. Porras. Problems: Exam/Review of Systems Vital Signs Vitals Vital Signs Date Time Temp Pulse Resp B/P Pulse Ox O2 Delivery O2 Flow Rate FiO2 07/30/17 08:13 94.6 89 18 118/63 99 07/30/17 03:45 Room Air 07/26/17 20:11 2.0 Intake and Output 07/29/17 07/29/17 07/30/17 15:00 23:00 07:00 Intake Total 700 ml 750 ml Balance 700 ml 750 ml Exam Constitutional: alert, oriented Head: normocephalic Neck: supple Respiratory: normal air movement Cardiovascular: nl pulses Gastrointestinal: non-tender, soft Musculoskeletal: nl extremities to inspection, other (s/p hip surgery) Extremities: normal pulses Neurological: nl mental status Skin: nl turgor Results Result Diagram: 07/30/17 0431 07/30/17 0446 Results 24 hrs Laboratory Tests Test 07/30/17 04:31 07/30/17 04:46 White Blood Count 11.3 #H Red Blood Count 2.45 L Hemoglobin 7.6 L Hematocrit 22.6 L Mean Corpuscular Volume 92.2 Mean Corpuscular Hemoglobin 31.0 Mean Corpuscular Hemoglobin Concent 33.6 Red Cell Distribution Width 12.4 Platelet Count 246 # Mean Platelet Volume 10.5 H Neutrophils % 71.7 Lymphocytes % 15.3 Monocytes % 8.4 Eosinophils % 3.7 Basophils % 0.3 Nucleated Red Blood Cells % 0.0 Neutrophils # 8.1 H Lymphocytes # 1.7 Monocytes # 1.0 H Eosinophils # 0.4 Basophils # 0.0 Nucleated Red Blood Cells # 0.0 Sodium Level 138 Potassium Level 4.4 Chloride Level 102 Carbon Dioxide Level 31 Anion Gap 9 Blood Urea Nitrogen 10 Creatinine 0.73 Glucose Level 105 Calcium Level 8.5 Medications Medications Current Medications Oxycodone HCl (Roxicodone) 20 mg Q3H PRN PO PAIN LEVEL 8-10 Last administered on 07/30/17 13:43; Admin Dose 20 MG; Start 07/26/17 at 12:00 Oxycodone HCl (Roxicodone) 10 mg Q3H PRN PO PAIN LEVEL 4-7 Last administered on 07/29/17 09:16; Admin Dose 10 MG; Start 07/26/17 at 12:00 Oxycodone HCl (Roxicodone) 5 mg Q3H PRN PO PAIN LEVEL 1-3 Last administered on 07/27/17 11:23; Admin Dose 5 MG; Start 07/26/17 at 12:00 Acetaminophen (Tylenol Tab) 500 mg Q6 PO Last administered on 07/30/17 11:35 ; Admin Dose 500 MG; Start 07/26/17 at 12:00 Pantoprazole (Protonix Tab) 40 mg DAILY@06 PO Last administered on 07/30/17 05:26; Admin Dose 40 MG; Start 07/27/17 at 06:00 Senna/Docusate Sodium (Senokot-S) 2 tab BID PRN PO CONSTIPATION Last administered on 07/29/17 12:06; Admin Dose 2 TAB; Start 07/26/17 at 12:00 Magnesium Hydroxide (Milk Of Mag) 30 ml HS PRN PO CONSTIPATION Last administered on 07/29/17 17:16; Admin Dose 30 ML; Start 07/26/17 at 12:00 Naloxone HCl (Narcan) 0.2 mg Q2M PRN IV DECREASED REPIRATORY RATE; Start at 12:00 Apixaban (Eliquis) 2.5 mg BID PO Last administered on 07/30/17 08:30; Admin Dose 2.5 MG; Start 07/27/17 at 09:00 Citalopram Hydrobromide (Celexa) 10 mg DAILY PO Last administered on 08:30; Admin Dose 10 MG; Start 07/27/17 at 09:00 Ondansetron HCl (Zofran Inj) 4 mg Q4H PRN IV NAUSEA AND/OR VOMITING Last administered on 07/30/17 08:29; Admin Dose 4 MG; Start 07/26/17 at 19:00 Ferrous Sulfate (Ferrous Sulfate (Ec)) 325 mg DAILY PO Last administered on 08:30; Admin Dose 325 MG; Start 07/29/17 at 17:30 Bisacodyl (Dulcolax) 10 mg DAILY PRN PO CONSTIPATION Last administered on 07/30 06:41; Admin Dose 10 MG; Start 07/29/17 at 17:30 KERI MURRAY Jul 30, 2017 13:55
[2017-07-30 14:50] VITALS: BP 104/57; RESP 18
[2017-07-30 20:00] VITALS: BP 107/52; RESP 19
[2017-07-31] MEDS: ACETAMINOPHEN 500 MG TAB PO SCH ×3 (00:25→11:22)
[2017-07-31] MEDS: oxyCODONE 5 MG TAB PO PRN ×2 (02:42→08:41)
[2017-07-31] MEDS: PANTOPRAZOLE (EC) 40 MG TAB PO SCH (05:41)
[2017-07-31 06:10] LABS: BASOPHILS % 0.4 % (0.0-2.0); EOSINOPHILS # 0.4 10^3/ul (0.0-0.5); EOSINOPHILS % 4.4 % (0.0-7.0); HEMATOCRIT 31.3 % (37.0-47.0); HEMOGLOBIN 10.3 g/dl (12.0-16.0); LYMPHOCYTES # 1.6 10^3/ul (0.8-2.9); LYMPHOCYTES % 19.2 % (15.0-51.0); MEAN CORPUSCULAR HGB CONC 32.9 g/dl (32.0-37.0); MEAN CORPUSCULAR VOLUME 91.3 fl (82.0-101.0); MEAN PLATELET VOLUME 10.3 fl (7.4-10.4); MONOCYTES % 11.8 % (0.0-11.0); NEUTROPHIL # 5.3 10^3/ul (1.6-7.5); NEUTROPHILS % 63.6 % (39.0-77.0); PLATELET COUNT 240 10^3/UL (140-415); RED BLOOD COUNT 3.43 10^6/ul (4.20-5.40); WHITE BLOOD COUNT 8.4 10^3/ul (4.8-10.8)
[2017-07-31 06:40] LABS: CALCIUM 8.3 mg/dl (8.4-10.2); CREATININE 0.64 mg/dl (0.44-1.00); POTASSIUM 3.9 mmol/L (3.5-5.1)
[2017-07-31 07:55] VITALS: BP 138/65; RESP 18
[2017-07-31] MEDS: FERROUS SULFATE (EC) 325 MG TAB PO SCH (08:40)
[2017-07-31] MEDS: CITALOPRAM 20 MG TAB PO SCH (08:41)
[2017-07-31] MEDS: APIXABAN 5 MG TABLET PO SCH (08:41)
[2017-07-31 14:37] VITALS: BP 117/65; RESP 18
[2017-07-31] MEDS ORDERED: APIX5TAB PO (14:50)
[2017-07-31] MEDS ORDERED: HYDR-906 PO (14:50)
--- NOTE | 2017-07-31 18:22 | DS ---
Date/Time of Note Date/Time of Note DATE: 07/31/17 TIME: 18:21 Discharge Summary Admission/Discharge Info Admit Date/Time Jul 26, 2017 at 06:53 Discharge Date/Time Jul 31, 2017 at 16:05 Patient Condition: Stable Hx of Present Illness The patient is 62-year-old pleasant female with history of depression with anxiety. Patient complains of bilateral hip pain left more than right which could progressively worse. Patient received nonoperative treatment with cortisone injection and physical talc therapy and anti-inflammatory medication with no significant improvement. Patient was evaluated by Dr. Stout in orthopedic surgery consultation. Patient was brought to the hospital and underwent total left hip replacement. Patient is admitted for further evaluation and management to medical surgical floor. Hospital Course Discharged home with home health PT -Left hip osteoarthritis, status post left total hip replacement, continue Eliquis 2.5 mg twice daily for 35 days. Continue oxycodone for pain. Follow up surgical recommendations. -Anemia of acute blood loss, status post blood transfusion -Depression with anxiety, continue Celexa. -Smoker, cessation is advised. Home Meds Active Scripts Hydrocodone/Acetaminophen ([place] 5-325 Tablet) 1 Each Tablet, 1 EACH PO Q4 for PAIN, #30 TAB Prov:KERI MURRAY 07/31/17 Apixaban* (Eliquis*) 5 Mg Tablet, 2.5 MG PO BID for 30 Days, TAB Prov:LAURA MURRAYA 07/31/17 Reported Medications Tramadol Hcl* (Ultram*) 50 Mg Tablet, 50 MG PO QHS Y for PAIN, TAB 07/26/17 Ranitidine Hcl* (Zantac*) 150 Mg Tablet, 150 MG PO HS, #30 TAB 07/26/17 Citalopram Hydrobromide* (Celexa*) 10 Mg Tablet, 10 MG PO DAILY, #30 TAB 07/26/17 Discontinued Reported Medications Naproxen* (Naproxen*) 500 Mg Tablet, 500 MG PO BID Y for PAIN, TAB 07/26/17 [No Home Meds] No Conflict Check 06/29/16 Follow-up Plan f/up with Dr Stout in 2 weeks. Primary Care Provider Not On Staff Doctor Time spent on discharge: > 30 minutes Pending Labs Laboratory Tests Test 07/31/17 04:37 White Blood Count 8.410^3/ul (4.8-10.8) Red Blood Count 3.4310^6/ul (4.20-5.40) Hemoglobin 10.3g/dl (12.0-16.0) Hematocrit 31.3% (37.0-47.0) Mean Corpuscular Volume 91.3fl (82.0-101.0) Mean Corpuscular Hemoglobin 30.0pg (29.0-33.0) Mean Corpuscular Hemoglobin Concent 32.9g/dl (32.0-37.0) Red Cell Distribution Width 13.0% (11.5-14.5) Platelet Count 03924^3/UL (140-415) Mean Platelet Volume 10.3fl (7.4-10.4) Neutrophils % 63.6% (39.0-77.0) Lymphocytes % 19.2% (15.0-51.0) Monocytes % 11.8% (0.0-11.0) Eosinophils % 4.4% (0.0-7.0) Basophils % 0.4% (0.0-2.0) Nucleated Red Blood Cells % 0.0/100WBC (0.0-0.0) Neutrophils # 5.310^3/ul (1.6-7.5) Lymphocytes # 1.610^3/ul (0.8-2.9) Monocytes # 1.010^3/ul (0.3-0.9) Eosinophils # 0.410^3/ul (0.0-0.5) Basophils # 0.010^3/ul (0.0-0.1) Nucleated Red Blood Cells # 0.010^3/ul (0.0-0.0) Sodium Level 138mmol/L (135-144) Potassium Level 3.9mmol/L (3.5-5.1) Chloride Level 103mmol/L (97-110) Carbon Dioxide Level 26mmol/L (21-31) Anion Gap 13 (8-16) Blood Urea Nitrogen 11mg/dl (7-20) Creatinine 0.64mg/dl (0.44-1.00) Glucose Level 97mg/dl (70-220) Calcium Level 8.3mg/dl (8.4-10.2) KERI MURRAY Jul 31, 2017 18:22
== END 2017-07-31 16:05 | disposition home health service (06) | DRG 470 ==
LOC: REC 06:53 → MS1 12:40
PROVIDERS: ADMIT Specialist; ATTEND Specialist
PROC: 0SRB02Z Replacement of Left Hip Joint with Metal on Polyethylene Synthetic Substitute, Open Approach (ICD-10-PCS; principal; 2017-07-26 08:00)
PROC: 30273N1 Transfusion of Nonautologous Red Blood Cells into Products of Conception, Circulatory, Percutaneous Approach (ICD-10-PCS; 2017-07-30)
DX: M16.12 Unilateral primary osteoarthritis, left hip (principal); D62 Acute posthemorrhagic anemia; F32.9 Major depressive disorder, single episode, unspecified; F41.8 Other specified anxiety disorders; F17.210 Nicotine dependence, cigarettes, uncomplicated
CPT/HCPCS: 36430; 73510; 73530; 80048; 81001; 85025; 86850; 86900; 86901; 86920; 87086; 88304; 88311; 97110; 97116; 97163; 97530; J0690; J1100; J2250; J2274; J2405; J2765; J2795; J7030; J7121; P9016

== ENCOUNTER 2017-08-08 11:09 | Outpatient (CLI) | payer OTHER ==
[~2017-08-08] VITALS: Ht 157.5 cm; Wt 52.7 kg
[~2017-08-08 11:09] MED LIST changes: +APIX5TAB PO; +CITA10TA72 PO; +HYDR-906 PO; -NO HOME MEDS; +RANI150T9 PO; +TRAM-40 PO
[2017-08-08 11:38] VITALS: BP 123/58; PULSE 102; RESP 18; Ht 157.5 cm; Wt 52.7 kg
--- NOTE | 2017-08-08 12:42 | PN ---
Date/Time of Note Date/Time of Note DATE: 08/08/17 TIME: 12:38 Outpatient Progress Note Chief Complaint Total left hip/osteoarthritis/anemia HPI Total left hip/patient had osteoarthritis of the hip, patient had total hip surgery, patient still has some pain, no fever chill, slight difficulty in walking, no fall, no tingling no numbness, Osteoarthritis/patient has osteoarthritis, patient has bilateral knee discomfort , also slight back discomfort, improving, patient used to take medication, Anemia/hematemesis or melena, ecchymosis or bruises, Review of Systems Const: No Fever, no chills, no Wt. loss, no Fatigue, normal appetite, no diaphoresis. Eyes: No pain, no discharge, no redness, no visual change, no foreign body. ENT: No pain, no bleeding, no congestion, no sore throat, no dysphagia, no discharge or rhinitis. Lymph: No adenopathy, no tender nodes, no lymphedema. Resp: No SOB, no cough, no sputum, no wheezing, no chest pain. CV: No chest pain, no palpitaions, no JOSEPH, no PND, no edema. GI: Normal appetite, no pain, no nausea, no vomiting, no diarrhea, no blood, no constipation. : No frequency, no urgency, no dysuria, no hematuria, no flank pain, no discharge, no bleeding. Musc: Left knee pain, slight back pain, no neck pain, right hip restricted ROM. Skin: No rash, no skin lesions, no erythema, no laceration, no bruising, no pruritus. Neuro: No ROYAL, no dizziness, no syncope, no seizure, no focal-weakness. Endo: No polyuria, no polydypsia, no dry-skin, no temp-intolerance. Psych: No hallucinations, no depression, no anxiety, no suicidal ideation. Ext: No edema, no pain, no ulcer, no weakness. Physical Exam Vital Signs Date Time Temp Pulse Resp B/P Pulse Ox O2 Delivery O2 Flow Rate FiO2 08/08/17 11:38 98.4 102 18 123/58 98 Room Air General Appearance: A 62 year-old female who appears well-developed, well- nourished, in no acute distress. HEENT: Head normocephalic, atraumatic. Pupils equal, round, reactive to light and accommodate. Sclerae are no jaundice. Nasal turbinates pink without erythema or nasal discharge. Mucous membranes pink and moist without lesions. Oropharynx clear without any exudate or discharge. NECK: Supple. Trachea midline, No thyromegaly, No cervical lymphadenopathy, No mass, No carotid bruits, No JVD, Carotid pulses 2+ bilaterally. PULMONARY: Clear to auscultaion bilaterally, No retractions, Chest expansion symmetric bilaterally, no rales, no ronchi, no dulness on percussion. CARDIAC: Normal SI and S2, Regular rate and rythm, no murmur, gallop, or rub. GASTROINTESTINAL: Abdomen is soft, non-tender, Non Rigid, No distention, Positive bowel sounds x4 quadrants, Liver normal. SKIN: Warm, dry, no rash, no bruise, no echmosis. EXTREMITIES: Bilateral lower extremities no edema status post left hip surgery, no redness, no discharge,, no phlabitus, pulse palpable, no contracture. MUSCULOSKELETAL: Spine Normal, Non-tender, Normal range of motion, No swelling, no deformity, no clubbing, or cyanosis, the patient has no edema to bilateral lower extremities, dorsalis pedis pulses palpable bilaterally. NEUROLOGIC: The patient is awake, alert, oriented, responding to yes/no questions appropriately, moving all extremities, cranial nerve intact, normal strenght, normal power, normal coordination, normal gait. Allergies Coded Allergies: No Known Allergy (Unverified , 07/26/17) PMH Osteoarthritis/anemia/total left hip surgery Social Hx No smoking no drinking, Family Hx Noncontributory Assessment/Plan Impression Total left hip replacement Osteoarthritis Anemia Plan Patient education done about patient condition and disease, patient doing much better, Patient encouraged to increase activity slowly, patient already on Eliquis, fall precaution, Patient encouraged to follow with the primary care physician and orthopedic surgery, Any chest pain or shortness of breath to report immediately, any side effects or any complication to inform primary care physician or call here, or call orthopedic, Medications Home Meds Active Scripts Hydrocodone/Acetaminophen ([place] 5-325 Tablet) 1 Each Tablet, 1 EACH PO Q4 for PAIN, #30 TAB Prov:KERI MURRAY 07/31/17 Apixaban* (Eliquis*) 5 Mg Tablet, 2.5 MG PO BID for 30 Days, TAB Prov:KERI MURRAY 07/31/17 Reported Medications Tramadol Hcl* (Ultram*) 50 Mg Tablet, 50 MG PO QHS Y for PAIN, TAB 07/26/17 Ranitidine Hcl* (Zantac*) 150 Mg Tablet, 150 MG PO HS, #30 TAB 07/26/17 Citalopram Hydrobromide* (Celexa*) 10 Mg Tablet, 10 MG PO DAILY, #30 TAB 07/26/17 YUMI TALBOT MD Aug 08, 2017 12:42
== END 2017-08-08 15:52 | disposition home or self-care (01) ==
LOC: DCC 11:09
PROVIDERS: ATTEND Internal Medicine
DX: M16.12 Unilateral primary osteoarthritis, left hip (principal); D64.9 Anemia, unspecified; Z96.642 Presence of left artificial hip joint
CPT/HCPCS: G0463

== ENCOUNTER 2017-08-22 11:46 | Outpatient (CLI) | payer OTHER ==
[~2017-08-22] VITALS: Ht 160 cm; Wt 52.7 kg
[2017-08-22 11:56] VITALS: BP 125/58; PULSE 115; RESP 18; Ht 160 cm; Wt 52.7 kg
--- NOTE | 2017-08-22 12:22 | PN ---
Date/Time of Note Date/Time of Note DATE: 08/22/17 TIME: 12:18 Outpatient Progress Note Chief Complaint Fatigue/osteoarthritis/status post left hip/sinus tachycardia HPI Fatigue/patient feels weakness and tiredness, no bleeding, no history of any thyroid problem, Osteoarthritis/patient has osteoarthritis, patient has some discomfort in the back, no fall, Status post left hip surgery/patient had total hip replacement, no bleeding or discharge, some discomfort, Sinus tachycardia/patient has sinus tachycardia, no headache dizziness chest pain shortness of breath or palpitation, no history of thyroid problem, Review of Systems Const: No Fever, no chills, no Wt. loss, no Fatigue, normal appetite, no diaphoresis. Eyes: No pain, no discharge, no redness, no visual change, no foreign body. ENT: No pain, no bleeding, no congestion, no sore throat, no dysphagia, no discharge or rhinitis. Lymph: No adenopathy, no tender nodes, no lymphedema. Resp: No SOB, no cough, no sputum, no wheezing, no chest pain. CV: No chest pain, no palpitaions, no JOSEPH, no PND, no edema. GI: Normal appetite, no pain, no nausea, no vomiting, no diarrhea, no blood, no constipation. : No frequency, no urgency, no dysuria, no hematuria, no flank pain, no discharge, no bleeding. Musc: Left hip pain, slight back pain, no neck pain, no knee pain, no restricted ROM. Skin: No rash, no skin lesions, no erythema, no laceration, no bruising, no pruritus. Neuro: No ROYAL, no dizziness, no syncope, no seizure, no focal-weakness. Endo: No polyuria, no polydypsia, no dry-skin, no temp-intolerance. Psych: No hallucinations, no depression, no anxiety, no suicidal ideation. Ext: No edema, no pain, no ulcer, no weakness. Physical Exam Vital Signs Date Time Temp Pulse Resp B/P Pulse Ox O2 Delivery O2 Flow Rate FiO2 08/22/17 11:56 98.6 115 18 125/58 99 Room Air General Appearance: A 62 year-old female who appears well-developed, well- nourished, in no acute distress. HEENT: Head normocephalic, atraumatic. Pupils equal, round, reactive to light and accommodate. Sclerae are no jaundice. Nasal turbinates pink without erythema or nasal discharge. Mucous membranes pink and moist without lesions. Oropharynx clear without any exudate or discharge. NECK: Supple. Trachea midline, No thyromegaly, No cervical lymphadenopathy, No mass, No carotid bruits, No JVD, Carotid pulses 2+ bilaterally. PULMONARY: Clear to auscultaion bilaterally, No retractions, Chest expansion symmetric bilaterally, no rales, no ronchi, no dulness on percussion. CARDIAC: Normal SI and S2, Regular rate and rythm, no murmur, gallop, or rub. GASTROINTESTINAL: Abdomen is soft, non-tender, Non Rigid, No distention, Positive bowel sounds x4 quadrants, Liver normal. SKIN: Warm, dry, no rash, no bruise, no echmosis. EXTREMITIES: Bilateral lower extremities normal, no edema, no phlabitus, pulse palpable, no contracture. Status post left total hip, MUSCULOSKELETAL: Spine Normal, Non-tender, Normal range of motion, No swelling, no deformity, no clubbing, or cyanosis, the patient has no edema to bilateral lower extremities, dorsalis pedis pulses palpable bilaterally. NEUROLOGIC: The patient is awake, alert, oriented, responding to yes/no questions appropriately, moving all extremities, cranial nerve intact, normal strenght, normal power, normal coordination, normal gait. Allergies Coded Allergies: No Known Allergy (Unverified , 07/26/17) PMH No change Social Hx No change Family Hx No change Assessment/Plan Impression Fatigue/osteoarthritis/S/P total left hip replacement/sinus tachycardia Plan Patient encouraged to follow with the primary care physician, and orthopedic, Patient feels weakness and tiredness, had surgery, will check CBC, Patient has sinus tachycardia, will check T3 and T4, Patient to follow with the lab to the primary care physician, Medications Home Meds Active Scripts Hydrocodone/Acetaminophen ([place] 5-325 Tablet) 1 Each Tablet, 1 EACH PO Q4 for PAIN, #30 TAB Prov:KERI MURRAY 07/31/17 Apixaban* (Eliquis*) 5 Mg Tablet, 2.5 MG PO BID for 30 Days, TAB Prov:KERI MURRAY 07/31/17 Reported Medications Tramadol Hcl* (Ultram*) 50 Mg Tablet, 50 MG PO QHS Y for PAIN, TAB 07/26/17 Ranitidine Hcl* (Zantac*) 150 Mg Tablet, 150 MG PO HS, #30 TAB 07/26/17 Citalopram Hydrobromide* (Celexa*) 10 Mg Tablet, 10 MG PO DAILY, #30 TAB 07/26/17 YUMI TALBOT MD Aug 22, 2017 12:22
== END 2017-08-22 15:44 | disposition home or self-care (01) ==
LOC: DCC 11:46
PROVIDERS: ATTEND Internal Medicine
DX: R53.83 Other fatigue (principal); M16.12 Unilateral primary osteoarthritis, left hip; R00.0 Tachycardia, unspecified; Z96.642 Presence of left artificial hip joint
CPT/HCPCS: G0463